=== PATIENT | female | born 2000 | race Caucasian/White ===

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

== ENCOUNTER 2021-11-01 13:05 | Emergency (ER) | payer OTHER, SELFPAY ==
[2021-11-01 13:06] VITALS: BP 133/92; PULSE 110; RESP 16; TEMP 35.4; O2SAT 97; BMI 23.8
[2021-11-01 13:24] VITALS: O2SAT 97
[2021-11-01 13:46] VITALS: PULSE 112; RESP 19
[2021-11-01] MEDS: Ipratropium/Albuterol Sulfate 3 ML AMPUL.NEB INHALATION (13:46)
--- NOTE | 2021-11-01 14:00 | RAD_ITS ---
STUDY: X-RAY CHEST REASON FOR EXAM: Female, 21 years old. Cough. TECHNIQUE: Single AP portable view of the chest. COMPARISON: None. FINDINGS: The lungs are clear and expanded. There is no demonstrated pleural abnormality. Normal size heart. Normal mediastinum and gudelia. Normal visualized pulmonary arteries. Normal visualized aortic arch and descending thoracic aorta. Normal visualized thoracic spine. Normal visualized ribs, clavicles, and shoulders. There is no demonstrated abnormality of the visualized soft tissue structures of the upper abdomen. RAD/Chest 1 View (Portable) IMPRESSION: Normal x-ray examination of the chest. Electronically Signed: Tunde Chan MD at 14:33 EDT ,
--- NOTE | 2021-11-01 14:43 | EDS_ITS ---
HPI History of Present Illness Chief Complaint: Cough Informant: patient Narrative Narrative: 21-year-old female arriving to the emergency room with cough and shortness of breath. She states that she has had a history of asthma and her inhaler is . She was recently seen by but she is no longer urgent care and was prescribed azithromycin and prednisone. She states that the prednisone seems to be a bit lower dosing than what she is used to. She notes no fevers. She notes continued symptoms despite the treatment above. PFSH PFS Medical History Anxiety Asthma Depression Home Medications albuterol sulfate 90 mcg/actuation aerosol inhaler 2 puff inhalation Q6H PRN Shortness Of Breath 11/01/21 [History Last Taken Unknown] albuterol sulfate 90 mcg/actuation aerosol inhaler (Ventolin HFA) 3 puff inhalation Q4H PRN PRN Wheezing ##1 11/01/21 [Rx Last Taken Unknown] prednisone 20 mg tablet 60 mg PO DAILY #15 TABLETS 11/01/21 [Rx Last Taken Unknown] Allergy/AdvReac Type Severity Reaction Status Date / Time No Known Allergies Allergy Verified 11/01/21 13:05 Social History (Updated 11/01/21 @ 15:[address] Baldo Grimes DO) Smoking Status: Never smoker substance use type: does not use ROS ROS ED Constitutional Constitutional ED: Denies chills, fever(s) or weight loss Eyes Eyes: Denies change in vision or diplopia ENT ENT ED: Denies ear pain, rhinorrhea or sore throat Cardiovascular Cardiovascular: Denies chest pain, orthopnea, palpitations or racing heartbeat Respiratory/Chest Respiratory/Chest: Reports cough and dyspnea; Denies orthopnea Gastrointestinal Gastrointestinal: Denies abdominal pain, diarrhea, nausea or vomiting Genitourinary Genitourinary ED: Denies dysuria, hematuria or urinary frequency Musculoskeletal Musculoskeletal: Denies arthralgias or myalgias Integumentary Denies abscess or rash Neurologic Neurologic: Denies headache(s) or weakness Psychiatric Psychiatric: Denies anxiety, depression, suicidal ideation or suicidal thoughts Endocrine Endocrinology: Denies polydipsia, polyphagia or polyuria Allergic/Immunologic Allergic/Immunologic ED: Denies mouth swelling, tongue swelling or urticaria EXAM Physical Exam Const Vital Signs: 11/01/21 13:06 11/01/21 13:24 11/01/21 13:46 Temperature 95.8 F L Temperature Source Temporal Pulse Rate 110 H 112 H Respiratory Rate 16 19 H Respiratory Effort Normal Non-Labored Respiratory Depth Normal Respiratory Pattern Normal Tachypnea Blood Pressure 133/92 H Blood Pressure Mean 105 Pulse Ox 97 Oxygen Delivery Method Room Air Room Air 11/01/21 14:48 Temperature Temperature Source Pulse Rate 72 Respiratory Rate 15 Respiratory Effort Respiratory Depth Respiratory Pattern Blood Pressure 113/69 Blood Pressure Mean Pulse Ox 99 Oxygen Delivery Method Positive well nourished and well developed General Appearance ED: well developed HEENT Reports normocephalic, head/scalp atraumatic and moist mucous membranes Eyes PERRL and EOMs intact bilaterally Neck no lymphadenopathy, supple and no JVD Resp normal respiratory effort Auscultation: wheezes expiratory wheezes Cardio regular rate, regular rhythm and no murmurs GI normal to inspection, nondistended, normoactive bowel sounds and non-tender Palpation: soft Back/Spine no CVA tenderness and normal ROM Extremity normal to inspection General Extremety ED: Negative for edema General Extremity: Negative for edema Neuro oriented x3 and CN's II-XII intact bilaterally Sensorium / Orientation: alert Motor Exam: strength 5/5 throughout Psych mental status grossly normal Mood & Affect: Negative for depressed or tearful Skin no rashes or lesions noted and no wounds MDM MDM MDM Narrative Medical decision making narrative: My interpretation of the chest x-ray is no acute process. COVID test is negative. At this point I believe this to be a viral illness. I am not cannot have her stop her antibiotic and she only has a couple days left should go ahead and finish that. I am going to write her a new inhaler as the previous one is and we will make sure that she has a spacer. Also going to have her increase the prednisone to 60 mg once a day. Patient to return if worsening or any concerns. Radiography Diagnostic Testing: Clinical Impression(s) from Imaging Studies Chest X-Ray 11/01/21 14:00 IMPRESSION: Normal x-ray examination of the chest. Electronically Signed: Tunde Chan MD at 14:33 EDT , Discharge Plan Triage Chief Complaint: Cough ED Provider: Baldo Grimes Dx/Rx/DC Orders Clinical Impression: Acute bronchitis with bronchospasm Instructions: ED Bronchitis with Wheezing (Adult) Prescriptions: New prednisone 20 mg tablet 60 mg PO DAILY Qty: 15 0RF albuterol sulfate [Ventolin HFA] 90 mcg/actuation HFA aerosol inhaler 3 puff inhalation Q4H PRN PRN (Reason: Wheezing) Qty: 1 0RF Rx Instructions: with spacer No Action albuterol sulfate 90 mcg/actuation HFA aerosol inhaler 2 puff INHALATION Q6H PRN (Reason: Shortness Of Breath) Label Comments: INHALE 1-2 PUFFS EVERY 6 (SIX) HOURS IF NEEDED FOR WHEEZING OR SHORTNESS OF BREATH. Primary Care Provider: Care Physician,No Primary Referrals: [facility] [Group of Physicians] - As Needed Care Physician,No Primary [Primary Care Provider] - Disposition Disposition: Home, Self Care Discharge Date/Time: 11/01/21 14:48
[2021-11-01 14:48] VITALS: BP 113/69; PULSE 72; RESP 15; O2SAT 99
== END 2021-11-01 14:48 | disposition home or self-care (01) ==
PROVIDERS: Emergency Provider Emergency Medicine; Visit Provider Emergency Medicine
DX: J20.9 Acute bronchitis, unspecified (principal); J45.909 Unspecified asthma, uncomplicated
CPT/HCPCS: 71045; 87811; 94640; 99282

== ENCOUNTER 2022-12-19 08:21 | Emergency (ER) | payer OTHER, SELFPAY ==
[2022-12-19 08:23] VITALS: BP 119/79; PULSE 100; RESP 14; TEMP 37.2; O2SAT 96; BMI 26.2
[2022-12-19 08:30] VITALS: O2SAT 99
--- NOTE | 2022-12-19 08:39 | EX.ED.DYSGE1 ---
HPI History of Present Illness Chief Complaint: Shortness of Breath Informant: patient Narrative Narrative: 22-year-old female presenting to the emergency room on day 6 of feeling ill. Patient notes a cough with some chest tightness. She notes she is an asthmatic. Current asthma therapy is as needed albuterol MDI with spacer. Unfortunately she could not find her inhaler. She notes some associated sore throat. Occasional sputum production. No fever or rashes. She denies neck pain vomiting or diarrhea. PFSH PFS Medical History Anxiety Asthma Depression Home Medications albuterol sulfate 90 mcg/actuation aerosol inhaler 2 puff inhalation Q6H PRN Shortness Of Breath 11/01/21 [History Last Taken Unknown] albuterol sulfate 90 mcg/actuation aerosol inhaler (Ventolin HFA) 3 puff inhalation Q4H PRN PRN Wheezing ##1 11/01/21 [Rx Last Taken Unknown] prednisone 20 mg tablet 60 mg (3 x 20 mg) PO DAILY #15 TABLETS 11/01/21 [Rx Last Taken Unknown] Allergy/AdvReac Type Severity Reaction Status Date / Time Iodinated Contrast Media Allergy Itching Verified 12/19/22 08:23 Social History Smoking Status: Never smoker substance use type: does not use ROS ROS ED Constitutional Constitutional ED: Denies chills, fever(s) or weight loss Eyes Eyes: Denies change in vision or diplopia ENT ENT ED: Reports sore throat; Denies ear pain or rhinorrhea Cardiovascular Cardiovascular: Denies chest pain, orthopnea, palpitations or racing heartbeat Respiratory/Chest Respiratory/Chest: Reports cough and other Details: Chest tightness worse with walking ; Denies orthopnea Gastrointestinal Gastrointestinal: Denies abdominal pain, diarrhea, nausea or vomiting Genitourinary Genitourinary ED: Denies dysuria, hematuria or urinary frequency Musculoskeletal Musculoskeletal: Denies arthralgias or myalgias Integumentary Denies abscess or rash Neurologic Neurologic: Denies headache(s) or weakness Psychiatric Psychiatric: Denies anxiety, depression, suicidal ideation or suicidal thoughts Endocrine Endocrinology: Denies polydipsia, polyphagia or polyuria Allergic/Immunologic Allergic/Immunologic ED: Denies mouth swelling, tongue swelling or urticaria EXAM Physical Exam Const Vital Signs: 12/19/22 08:23 12/19/22 08:30 Temperature 99 F Temperature Source Temporal Pulse Rate 100 Respiratory Rate 14 Respiratory Effort Normal Non-Labored Respiratory Depth Normal Respiratory Pattern Normal Blood Pressure 119/79 Blood Pressure Mean 92 Pulse Ox 96 Oxygen Delivery Method Room Air Room Air Positive well nourished and well developed General Appearance ED: well developed HEENT Reports normocephalic, head/scalp atraumatic and moist mucous membranes HEENT Narrative: No oral pharyngeal erythema. No exudates or palatal petechiae noted. I do not appreciate any retropharyngeal or peritonsillar abscess Eyes PERRL and EOMs intact bilaterally Neck no lymphadenopathy, supple and no JVD Resp normal respiratory effort and clear to auscultation bilaterally Cardio regular rate, regular rhythm and no murmurs GI normal to inspection, nondistended, normoactive bowel sounds and non-tender Palpation: soft Back/Spine no CVA tenderness and normal ROM Extremity normal to inspection General Extremety ED: Negative for edema General Extremity: Negative for edema Neuro oriented x3 and CN's II-XII intact bilaterally Sensorium / Orientation: alert Motor Exam: strength 5/5 throughout Psych mental status grossly normal Mood & Affect: Negative for depressed or tearful Skin no rashes or lesions noted and no wounds MDM MDM MDM Narrative Medical decision making narrative: Rapid strep was negative. This will be sent for culture. She is not wheezing does not appear dyspneic. I do not think steroids at this point are necessarily indicated. I can write for her to have her albuterol MDI on hand with a spacer. Patient to return if worsening or concerns Discharge Plan Triage Chief Complaint: Shortness of Breath ED Provider: Baldo Grimes Dx/Rx/DC Orders Prescriptions: No Action albuterol sulfate 90 mcg/actuation HFA aerosol inhaler 2 puff INHALATION Q6H PRN (Reason: Shortness Of Breath) Patient Comments: INHALE 1-2 PUFFS EVERY 6 (SIX) HOURS IF NEEDED FOR WHEEZING OR SHORTNESS OF BREATH. prednisone 20 mg tablet 60 mg PO DAILY Qty: 15 0RF albuterol sulfate [Ventolin HFA] 90 mcg/actuation HFA aerosol inhaler 3 puff inhalation Q4H PRN PRN (Reason: Wheezing) Qty: 1 0RF Rx Instructions: with spacer Primary Care Provider: Care Physician,No Primary Referrals: Care Physician,No Primary [Primary Care Provider] -
[2022-12-19 09:34] VITALS: BP 126/57; PULSE 62; RESP 15; O2SAT 99
== END 2022-12-19 09:35 | disposition home or self-care (01) ==
PROVIDERS: Emergency Provider Emergency Medicine; Visit Provider Emergency Medicine
DX: R06.02 Shortness of breath (principal)
CPT/HCPCS: 87880; 99282

== ENCOUNTER 2023-02-23 17:57 | Emergency (ER) | payer OTHER, SELFPAY ==
[2023-02-23 17:58] VITALS: BP 126/78; PULSE 86; RESP 18; TEMP 35.9; O2SAT 100; BMI 28.2
--- NOTE | 2023-02-23 18:10 | EDS_ITS ---
HPI HPI - Female History of Present Illness Chief Complaint: Complaint Informant: patient Narrative Narrative: Patient complains of UTI symptoms. She stated her symptoms started yesterday with frequency and dysuria. She had a UTI back on January 29 and was treated in [place]. She was on cefdinir for what sounds like about a week. Her symptoms totally resolved. She had the same symptoms then that they were much worse. She has been off antibiotics for about 3 weeks. She states the symptoms are now starting to come back but they are not as bad. She has no nausea vomiting fevers chills or flank pain. No vaginal discharge or bleeding. Last menstrual cycle was probably back in the summer when she got her recent Nexplanon. She [facility] the [facility]. They evidently checked the urine it was positive for UTI. They had her do then a virtual physician visit. They then referred her here because they did not want to treat her because she had already been treated within the last month. [facility] Medical History Anxiety Asthma Depression Home Medications albuterol sulfate 90 mcg/actuation aerosol inhaler 2 puff inhalation Q6H PRN Shortness Of Breath 11/01/21 [History Last Taken Unknown] albuterol sulfate 90 mcg/actuation aerosol inhaler (Ventolin HFA) 3 puff inhalation Q4H PRN PRN Wheezing ##1 11/01/21 [Rx Last Taken Unknown] albuterol sulfate 90 mcg/actuation aerosol inhaler (Ventolin HFA) 2 puff inhalation Q4H PRN PRN Wheezing ##1 12/19/22 [Rx Last Taken Unknown] aripiprazole 10 mg tablet (Abilify) 10 mg PO QHS 02/23/23 [History Last Taken Unknown] buspirone 30 mg tablet 30 mg PO BID 02/23/23 [History Last Taken Unknown] lorazepam 1 mg tablet 0.5 mg PO PRN 02/23/23 [History Last Taken Unknown] nitrofurantoin monohydrate/macrocrystals 100 mg capsule (Macrobid) 100 mg PO BID #14 caps 02/23/23 [Rx Last Taken Unknown] sertraline 100 mg tablet (Zoloft) 200 mg PO DAILY 02/23/23 [History Last Taken Unknown] Allergy/AdvReac Type Severity Reaction Status Date / Time Iodinated Contrast Media Allergy Itching Verified 02/23/23 18:18 Social History Smoking Status: Never smoker substance use type: does not use ROS ROS ED Constitutional Constitutional ED: Denies chills or fever(s) Cardiovascular Cardiovascular: Denies chest pain or palpitations Respiratory/Chest Respiratory/Chest: Denies cough or dyspnea Gastrointestinal Gastrointestinal: Denies abdominal pain, constipation, diarrhea, melena, nausea or vomiting Genitourinary Genitourinary ED: Reports dysuria and urinary frequency; Denies hematuria Musculoskeletal Musculoskeletal: Reports other Details: No back or flank pain ; Denies myalgias or neck pain Neurologic Neurologic: Denies weakness Endocrine Endocrinology: Denies polydipsia or polyuria Hematologic/Lymphatic Hematologic/Lymphatic: Denies lymphadenopathy Allergic/Immunologic Allergic/Immunologic ED: Denies urticaria EXAM Physical Exam Narrative Exam Narrative: CONSTITUTIONAL: Patient is nontoxic in appearance. The patient looks comfortable. HEENT: No notable trauma. Mucous membranes moist. EYES: No conjunctival injection. CARDIOVASCULAR: Regular rate. Regular rhythm. No notable murmur. RESPIRATORY: No respiratory distress. Breathing is unlabored. No wheezes. GASTROINTESTINAL: Not distended. Bowel sounds are normal. No tenderness. No guarding. No rebound. No palpable mass. No bruit. Overall very benign abdomen. GENITOURINARY: No tenderness over the bladder. No CVA tenderness on either side and she denies pain there. MUSCULOSKELETAL: Atraumatic. No peripheral edema. NEUROLOGICAL: Patient is alert and appropriate. No focal deficit noted. SKIN: No noted rashes. No diaphoresis. No pallor PSYCHIATRIC: Patient is calm. Mood is appropriate. Const Vital Signs: 02/23/23 17:58 Temperature 96.6 F L Temperature Source Temporal Pulse Rate 86 Respiratory Rate 18 Blood Pressure 126/78 H Blood Pressure Mean 94 Pulse Ox 100 Oxygen Delivery Method Room Air MDM MDM MDM Narrative Medical decision making narrative: Urine is negative Urinalysis shows no real sign of UTI. However, it is also very dilute. She has been drinking a large amount of water since it was checked earlier. She has urinalysis earlier today that was evidently positive. She has symptoms of UTI. We discussed risks and benefits of treating. We mutually agreed that we will treat with antibiotics pending results of her culture. She was on cefdinir before. She has no allergies. We will treat with Macrobid. If the cultures show poor susceptibility it can be changed. If it shows negative infection it can be stopped at that point. Lab Data Attestation: I reviewed the patient's lab results. Labs: Laboratory Results - last 24 hr 02/23/23 18:10 Urine Color Straw Urine Clarity Clear Urine pH 6.5 Ur Specific [place] 1.005 Urine Protein Negative Urine Glucose (UA) Normal Urine Ketones Negative Urine Occult Blood Negative Urine Nitrite Negative Urine Bilirubin Negative Urine Urobilinogen Normal Ur Leukocyte Esterase 25 H Urine RBC 0 SEEN Urine WBC 0-5 SEEN Ur Squamous Epith Cells 0-5 SEEN Urine Bacteria 0 SEEN Urine Mucus 0 SEEN Urine Test Negative Discharge Plan Triage Chief Complaint: Complaint ED Provider: Rogerio Irene Dx/Rx/DC Orders Clinical Impression: UTI (urinary tract infection) Instructions: Urinary Tract Infections in Women Prescriptions: New nitrofurantoin monohyd/m-cryst [Macrobid] 100 mg capsule 100 mg PO BID Qty: 14 0RF Rx Instructions: must administer with a meal/food No Action albuterol sulfate 90 mcg/actuation HFA aerosol inhaler 2 puff INHALATION Q6H PRN (Reason: Shortness Of Breath) Patient Comments: INHALE 1-2 PUFFS EVERY 6 (SIX) HOURS IF NEEDED FOR WHEEZING OR SHORTNESS OF BREATH. albuterol sulfate [Ventolin HFA] 90 mcg/actuation HFA aerosol inhaler 3 puff inhalation Q4H PRN PRN (Reason: Wheezing) Qty: 1 0RF Rx Instructions: with spacer sertraline [Zoloft] 100 mg tablet 200 mg PO DAILY aripiprazole [Abilify] 10 mg tablet 10 mg PO QHS buspirone 30 mg tablet 30 mg PO BID Patient Comments: TAKE 1 TABLET BY MOUTH TWICE A DAY lorazepam 1 mg tablet 0.5 mg PO PRN Patient Comments: TAKE HALF OF A TABLET BY MOUTH THREE TIMES DAILY NEEDED FOR SEVERE ANXIETY albuterol sulfate [Ventolin HFA] 90 mcg/actuation HFA aerosol inhaler 2 puff inhalation Q4H PRN PRN (Reason: Wheezing) Qty: 1 0RF Rx Instructions: dispense with spacer Primary Care Provider: Care Physician,No Primary Referrals: Kary Torres MD [Med Staff - Active Staff] - 3-5 Days Care Physician,No Primary [Primary Care Provider] - Activity Restrictions/Additional Instructions: Follow-up as above or with your physician back home. Disposition Disposition: Home, Self Care Capacity Legal Pivot End Polisher Reflex Medical hold order details:: IF a medical hold is selected below, a suggested order for a MEDICAL HOLD will reflex upon signing the document. Next of kin: [place] law dictates a PRIORITY LIST for identifying legal decision-maker/legal next of kin in the following order (LNOK): 1st: The patient?s legal guardian, if any 2nd: The patient's spouse (if status is questionable, consult Risk Management) 3rd: The patient?s adult child(robert) (majority, if multiple children) 4th: The patient?s parents 5th: The patient?s adult siblings (majority, if multiple children siblings)
[2023-02-23 18:17] LABS: Bacteria 0 SEEN /hpf (None Seen); Mucous, Urine 0 SEEN /hpf (<or=2+); Red Blood Cells-Urine 0 SEEN /hpf (0-5)
[2023-02-23 18:30] LABS: Color, Urine Straw (Yellow); Glucose, Dipstick Normal (Normal); Ketone-Dipstick Negative (Negative); Leukocyte Esterase-Dipstick 25 /ul (Negative); Nitrite-Dipstick Negative (Negative); Occult Blood-Urine Negative /ul (Negative); Protein-Dipstick Negative (Negative); Specific Gravity, Urine 1.005 (1.002-1.030); Urine Bilirubin Dipstick Negative (Negative); Urine Clarity Clear (Clear); Urine Urobilinogen Normal (Normal); Urine pH 6.5 (5.0 - 8.0)
--- OUTSIDE RECORDS SUMMARY | 2023-02-23 18:40 | XMS RPT_ITS | CCD ---
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 trouble swallowing; or severe nervous system reaction--very stiff (rigid) muscles, high fever, sweating, confusion, fast or uneven heartbeats, tremors, feeling like you might pass out. Common side effects may include: drowsiness, dizziness; ringing in your ears; double vision; feeling nervous; dry mouth; or tiredness, sleep problems (insomnia). This is not a complete list of side effects and others may occur. Call your doctor for medical advice about side effects. You may report side effects to FDA at 8-718-IPJ-2779. What other drugs will affect promethazine? Using promethazine with other drugs that make you drowsy can worsen this effect. Ask your doctor before using opioid medication, a sleeping pill, a muscle relaxer, or medicine for anxiety or seizures. Other drugs may affect promethazine, including prescription and ppdb-wkt-dxbjiqv medicines, vitamins, and herbal products. Tell your doctor about all other medicines you use. Where can I get more information? Your doctor or pharmacist can provide more information about promethazine. Remember, keep this and all other medicines out of the reach of children, never share your medicines with others, and use this medication only for the indication prescribed. Every effort has been made to ensure that the information provided by [employer] ('[employer]') is accurate, up-to-date, and complete, but no guarantee is made to that effect. Drug information contained herein may be time sensitive. [employer] information has been compiled for use by healthcare practitioners and consumers in the [place] and therefore [employer] does not warrant that uses outside of the [place] are appropriate, unless specifically indicated otherwise. [employer] drug information does not endorse drugs, diagnose patients or recommend therapy. [employer] drug information is an informational resource designed to assist licensed healthcare practitioners in caring for their patients and/or to serve consumers viewing this service as a supplement to, and not a substitute for, the expertise, skill, knowledge and judgment of healthcare practitioners. The absence of a warning for a given drug or drug combination in no way should be construed to indicate that the drug or drug combination is safe, effective or appropriate for any given patient. [employer] does not assume any responsibility for any aspect of healthcare administered with the aid of information [employer] provides. The information contained herein is not intended to cover all possible uses, directions, precautions, warnings, drug interactions, allergic reactions, or adverse effects. If you have questions about the drugs you are taking, check with your doctor, nurse or pharmacist. Copyright 4616-3150 [employer] ([employer]). Version: 8.01. Revision Date: 03/05/2021. dolutegravir (BLUNT loo TEG ra vir) Livan Licona What is the most important information I should know about dolutegravir? You should not use dolutegravir if you are also taking dofetilide (Tikosyn). Taking dolutegravir during the first trimester of may cause defects. Use effective control to prevent while you are using dolutegravir. What is dolutegravir? Dolutegravir is an antiviral medicine that is used with other medications to treat HIV, the virus that can cause the acquired immunodeficiency syndrome (AIDS). Dolutegravir is not a cure for HIV or AIDS. Dolutegravir is for use in adults and children as young as 4 weeks old and weighing at least 6 pounds (3 kilograms). Dolutegravir may also be used for purposes not listed in this medication guide. What should I discuss with my healthcare provider before taking dolutegravir? You should not use dolutegravir if you are allergic to it, or if you are also taking dofetilide (Tikosyn). Tell your doctor if you have ever had: liver disease, especially hepatitis B or C. You may need to have a negative test before starting this treatment. Dolutegravir may harm an unborn baby if you take the medicine at the time of conception or during the first 12 weeks of . Use effective control to prevent , and tell your doctor if you become . HIV can be passed to your baby if the virus is not controlled during . If you are , your name may be listed on a registry to track any effects of antiviral medicine on the baby. Use your medications properly to control HIV. Women with HIV or AIDS should not breastfeed. Even if your baby is born without HIV, the virus may be passed to the baby in your breast milk. How should I take dolutegravir? Follow all directions on your prescription label and read all medication guides or instruction sheets. Use the medicine exactly as directed. You may take dolutegravir with or without food. Do not crush or chew a dispersible tablet whole. Swallow the tablet whole, or place it in a small amount of water. Allow the tablet to disperse (it will not dissolve completely). Stir and give the mixture to the child right away. The amount of water needed will depend on the number of tablets needed for your child's dose. Follow the instructions provided with your medicine. The dolutegravir regular tablet and dispersible tablet cannot be used in the same dosages. Take only the pill form your doctor has prescribed. Avoid medication errors by always checking the medicine you receive at the pharmacy. Dolutegravir doses are based on weight in children. Your child's dose needs may change if the child gains or loses weight. While using dolutegravir, you may need frequent blood tests. If you've ever had hepatitis B, using dolutegravir can cause this virus to become active or get worse. You may need frequent liver function tests while using this medicine and for several months after you stop. Use all HIV medications as directed and read all medication guides you receive. Do not change your dose or dosing schedule without your doctor's advice. Every person with HIV should remain under the care of a doctor. Store at room temperature away from moisture and heat. Keep the tablets in their original container, along with any packet or canister of moisture-absorbing preservative. What happens if I miss a dose? Take the medicine as soon as you can, but skip the missed dose if it is almost time for your next dose. Do not take two doses at one time. Get your prescription refilled before you run out of medicine completely. What happens if I overdose? Seek emergency medical attention or call the Poison Help line at . What should I avoid while taking dolutegravir? Using this medicine will not prevent your disease from spreading. Do not have unprotected sex or share razors or toothbrushes. Talk with your doctor about safe ways to prevent HIV transmission during sex. Sharing drug or medicine needles is never safe, even for a healthy person. What are the possible side effects of dolutegravir? Stop taking this medicine and get emergency medical help if you have signs of an allergic reaction: fever, general ill feeling, trouble breathing, tiredness; joint or muscle pain, blisters or mouth sores, redness or swelling in your eyes; blistering or peeling skin; swelling of your face, lips, tongue, or throat. Call your doctor at once if you have: the first sign of any skin rash, no matter how mild; or liver problems--nausea, vomiting, loss of appetite, upper stomach pain, dark urine, godwin-colored stools, jaundice (yellowing of the skin or eyes). Dolutegravir affects your immune system, which may cause certain side effects (even weeks or months after you've taken this medicine). Tell your doctor if you have: signs of a new infection--fever, night sweats, swollen glands, cold sores, cough, wheezing, diarrhea, weight loss; trouble speaking or swallowing, problems with balance or eye movement, weakness or prickly feeling; or swelling in your neck or throat (enlarged thyroid), menstrual changes, impotence. Common side effects may include: headache; tiredness; or sleep problems (insomnia). This is not a complete list of side effects and others may occur. Call your doctor for medical advice about side effects. You may report side effects to FDA at 9-213-WRU-5070. What other drugs will affect dolutegravir? Some medicines can make dolutegravir much less effective when taken at the same time. If you take any of the following medicines, take your dolutegravir dose 2 hours before or 6 hours after you take the other medicine. antacids or laxatives that contain calcium, magnesium, or aluminum (such as Amphojel, Di-Gel Maalox, Milk of Magnesia, Mylanta, Pepcid Complete, Rolaids, Rulox, Tums, and others), or the ulcer medicine sucralfate (Carafate); buffered medicine; or vitamin or mineral supplements that contain calcium or iron (but if you take dolutegravir with food, you can take these supplements at the same time). Many drugs can affect dolutegravir. This includes prescription and mvbi-zui-mxhndta medicines, vitamins, and herbal products. Not all possible interactions are listed here. Tell your doctor about all your current medicines and any medicine you start or stop using. Where can I get more information? Your pharmacist can provide more information about dolutegravir. Remember, keep this and all other medicines out of the reach of children, never share your medicines with others, and use this medication only for the indication prescribed. Every effort has been made to ensure that the information provided by [employer]. ('[employer]') is accurate, up-to-date, and complete, but no guarantee is made to that effect. Drug information contained herein may be time sensitive. [employer] information has been compiled for use by healthcare practitioners and consumers in the [place] and therefore [employer] does not warrant that uses outside of the [place] are appropriate, unless specifically indicated otherwise. [email or web address]'s drug information does not endorse drugs, diagnose patients or recommend therapy. [employer] drug information is an informational resource designed to assist licensed healthcare practitioners in caring for their patients and/or to serve consumers viewing this service as a supplement to, and not a substitute for, the expertise, skill, knowledge and judgment of healthcare practitioners. The absence of a warning for a given drug or drug combination in no way should be construed to indicate that the drug or drug combination is safe, effective or appropriate for any given patient. [facility] does not assume any responsibility for any aspect of healthcare administered with the aid of information [employer] provides. The information contained herein is not intended to cover all possible uses, directions, precautions, warnings, drug interactions, allergic reactions, or adverse effects. If you have questions about the drugs you are taking, check with your doctor, nurse or pharmacist. Copyright [id number] [employer] ([employer]). Version: 6.01. Revision Date: 09/06/2019. doxycycline (oral/injection) (DOX sarina regalado) Acticlate, Adoxa, Alodox, Avidoxy, Doryx, Doryx MPC, Lymepak, Mondoxyne NL, Monodox, Morgidox, Morgidox 1t021ad, Morgidox 1v142du, O[place]bo, Oracea, Targadox, Vibramycin, Vibramycin Monohydrate What is the most important information I should know about doxycycline? You should not take this medicine if you are allergic to any tetracycline antibiotic. Children younger than 8 years old should use doxycycline only in cases of severe or life-threatening conditions. This medicine can cause permanent yellowing or graying of the teeth in children Using doxycycline during could harm the unborn baby or cause permanent tooth discoloration later in the baby's life. What is doxycycline? Doxycycline is a tetracycline antibiotic that Doxycycline is used to treat many different bacterial infections, such as acne, urinary tract infections, intestinal infections, eye infections, gonorrhea, chlamydia, periodontitis (gum disease), and others. Doxycycline is also used to treat blemishes, bumps, and acne-like lesions caused by rosacea. Doxycycline will not treat facial redness caused by rosacea. Some forms of doxycycline are used to prevent malaria, to treat anthrax, or to treat infections caused by mites, ticks, or lice. Doxycycline may also be used for purposes not listed in this medication guide. What should I discuss with my healthcare provider before taking doxycycline? You should not take this medicine if you are allergic to doxycycline or other tetracycline antibiotics such as demeclocycline, minocycline, tetracycline, or tigecycline. Tell your doctor if you have ever had: liver disease; kidney disease; asthma or sulfite allergy; increased pressure inside your skull; or if you also take isotretinoin, seizure medicine, or a blood thinner such as warfarin (Coumadin). If you are using doxycycline to treat gonorrhea, your doctor may test you to make sure you do not also have syphilis, another sexually transmitted disease. Taking this medicine during may affect tooth and bone development in the unborn baby. Taking doxycycline during the last half of can cause permanent tooth discoloration later in the baby's life. Tell your doctor if you are or if you become . Doxycycline can make control pills less effective. Ask your doctor about using a non-hormonal control (condom, diaphragm with spermicide) to prevent . Doxycycline can pass into breast milk and may affect bone and tooth development in a nursing . Do not breastfeed while you are taking doxycycline. Doxycycline can cause permanent yellowing or graying of the teeth in children younger than 8 years old. Children should use doxycycline only in cases of severe or life-threatening conditions such as anthrax or [place] spotted fever. The benefit of treating a serious condition may outweigh any risks to the child's tooth development. How should I take doxycycline? Follow all directions on your prescription label and read all medication guides or instruction sheets. Use the medicine exactly as directed. Take doxycycline with a full glass of water. Drink plenty of liquids while you are taking doxycycline. Read and carefully follow any Instructions for Use provided with your medicine. Ask your doctor or pharmacist if you do not understand these instructions. Most brands of doxycyline may be taken with food or milk if the medicine upsets your stomach. Different brands of doxycycline may have different instructions about taking them with or without food. Take Oracea on an empty stomach, at least 1 hour before or 2 hours after a meal. You may need to split a doxycycline tablet to get the correct dose. Follow your doctor's instructions. Swallow a delayed-release capsule or tablet whole. Do not crush, chew, break, or open it. Measure liquid medicine with the dosing syringe provided, or with a special dose-measuring spoon or medicine cup. If you do not have a dose-measuring device, ask your pharmacist for one. If you take doxycycline to prevent malaria: Start taking the medicine 1 or 2 days before entering an area where malaria is common. Continue taking the medicine every day during your stay and for at least 4 weeks after you leave the area. Doxycycline is usually given by injection only if you are unable to take the medicine by mouth. A healthcare provider will give you this injection as an infusion into a vein. Use this medicine for the full prescribed length of time, even if your symptoms quickly improve. Skipping doses can increase your risk of infection that is resistant to medication. Doxycycline will not treat a viral infection such as the flu or a common cold. Store at room temperature away from moisture, heat, and light. Throw away any unused medicine after the expiration date on the label has passed. Using doxycycline can cause damage to your kidneys. What happens if I miss a dose? Take the medicine as soon as you can, but skip the missed dose if it is almost time for your next dose. Do not take two doses at one time. What happens if I overdose? Seek emergency medical attention or call the Poison Help line at . What should I avoid while taking doxycycline? Do not take iron supplements, multivitamins, calcium supplements, antacids, or laxatives within 2 hours before or after taking doxycycline. Avoid taking any other antibiotics with doxycycline unless your doctor has told you to. Doxycycline could make you sunburn more easily. Avoid sunlight or tanning beds. Wear protective clothing and use sunscreen (SPF 30 or higher) when you are outdoors. Antibiotic medicines can cause diarrhea, which may be a sign of a new infection. If you have diarrhea that is watery or bloody, call your doctor. Do not use anti-diarrhea medicine unless your doctor tells you to. What are the possible side effects of doxycycline? Get emergency medical help if you have signs of an allergic reaction (hives, difficult breathing, swelling in your face or throat) or a severe skin reaction (fever, sore throat, burning in your eyes, skin pain, red or purple skin rash that spreads and causes blistering and peeling). Seek medical treatment if you have a serious drug reaction that can affect many parts of your body. Symptoms may include: skin rash, fever, swollen glands, flu-like symptoms, muscle aches, severe weakness, unusual bruising, or yellowing of your skin or eyes. This reaction may occur several weeks after you began using doxycycline. Call your doctor at once if you have: severe stomach pain, diarrhea that is watery or bloody; throat irritation, trouble swallowing; chest pain, irregular heart rhythm, feeling short of breath; little or no urination; low white blood cell counts--fever, chills, swollen glands, body aches, weakness, pale skin, easy bruising or bleeding; increased pressure inside the skull--severe headaches, ringing in your ears, dizziness, nausea, vision problems, pain behind your eyes; or signs of liver or pancreas problems--loss of appetite, upper stomach pain (that may spread to your back), tiredness, nausea or vomiting, fast heart rate, dark urine, jaundice (yellowing of the skin or eyes). Common side effects may include: nausea, vomiting, upset stomach, loss of appetite; mild diarrhea; skin rash or itching; darkened skin color; or vaginal itching or discharge. This is not a complete list of side effects and others may occur. Call your doctor for medical advice about side effects. You may report side effects to FDA at 5-465-KHQ-3168. What other drugs will affect doxycycline? Sometimes it is not safe to use certain medications at the same time. Some drugs can affect your blood levels of other drugs you take, which may increase side effects or make the medications less effective. Other drugs may affect doxycycline, including prescription and hdxt-aqw-bpilfnd medicines, vitamins, and herbal products. Tell your doctor about all your current medicines and any medicine you start or stop using. Where can I get more information? Your pharmacist can provide more information about doxycycline. Remember, keep this and all other medicines out of the reach of children, never share your medicines with others, and use this medication only for the indication prescribed. Every effort has been made to ensure that the information provided by [employer] ('[employer]') is accurate, up-to-date, and complete, but no guarantee is made to that effect. Drug information contained herein may be time sensitive. [employer] information has been compiled for use by healthcare practitioners and consumers in the [place] and therefore [employer] does not warrant that uses outside of the [place] are appropriate, unless specifically indicated otherwise. [employer] drug information does not endorse drugs, diagnose patients or recommend therapy. [employer] drug information is an informational resource designed to assist licensed healthcare practitioners in caring for their patients and/or to serve consumers viewing this service as a supplement to, and not a substitute for, the expertise, skill, knowledge and judgment of healthcare practitioners. The absence of a warning for a given drug or drug combination in no way should be construed to indicate that the drug or drug combination is safe, effective or appropriate for any given patient. [employer] does not assume any responsibility for any aspect of healthcare administered with the aid of information [employer] provides. The information contained herein is not intended to cover all possible uses, directions, precautions, warnings, drug interactions, allergic reactions, or adverse effects. If you have questions about the drugs you are taking, check with your doctor, nurse or pharmacist. Copyright [id number] [employer] ([employer]). Version: 25.. Revision Date: 10/14/2022. emtricitabine and tenofovir (ANDREW ramirez and ten OF dc vir ) Desckristiny, Descmeghan Blister Pack, Truvada What is the most important information I should know about emtricitabine and tenofovir? Do not take this combination medicine if you also take other medicines that contain emtricitabine, tenofovir, lamivudine, or adefovir. Truvada PrEP is used to reduce the risk of becoming infected with HIV in adults who are HIV-negative. This medicine alone will not protect you from infection with HIV. You must also use safer sex practices and get tested for HIV at least every 3 months. You may develop lactic acidosis, a dangerous build-up of lactic acid in your blood. Call your doctor or get emergency medical help if you have unusual muscle pain, trouble breathing, stomach pain, dizziness, feeling cold, or feeling very weak or tired. If you've ever had hepatitis B, it may become active or get worse after you stop using emtricitabine and tenofovir. You may need frequent liver function tests for several months. What is emtricitabine and tenofovir? Emtricitabine and tenofovir are antiviral medicines that prevent human immunodeficiency virus (HIV) from multiplying in your body. Emtricitabine and tenofovir is a combination medicine used to treat HIV, the virus that can cause acquired immunodeficiency syndrome (AIDS). This medicine is not a cure for HIV or AIDS, but it can be used to treat HIV in adults and children who are at least 12 years old and weigh at least 17 kilograms (37 pounds). Emtricitabine and tenofovir is also used in children who weigh between 55 and 77 pounds (25 to 35 kilograms) and who take certain other HIV medications. Truvada PrEP is used together with safer-sex practices to reduce the risk of becoming infected with HIV. You must be HIV-negative and an adult to use Truvada PrEP for this purpose. Emtricitabine and tenofovir may also be used for purposes not listed in this medication guide. What should I discuss with my healthcare provider before taking emtricitabine and tenofovir? You should not take this medicine if you are allergic to emtricitabine or tenofovir. Do not take if you also use other medicines that contain emtricitabine, tenofovir, lamivudine, or adefovir (such as Atripla, Combivir, Complera, Descovy, Dutrebis, Emtriva, Epivir, Epzicom, Genvoya, Hepsera, Odefsey, Stribild, Triumeq, Trizivir, or Viread). If you take Truvada PrEP to reduce your risk of HIV infection: You must have a negative HIV test immediately before you start taking the medicine. Do not take Truvada PrEP to reduce infection risk if you are HIV-positive, if have been exposed to HIV within the past month, or if you had any symptoms (such as fever, sore throat, night sweats, swollen glands, diarrhea, body aches). Tell your doctor if you have ever had: liver disease (you may be tested for hepatitis B before you can use this medicine); osteopenia (low bone mineral density); or kidney disease. You may develop lactic acidosis, a dangerous build-up of lactic acid in your blood. This may be more likely if you have other medical conditions, if you've taken HIV medication for a long time, or if you are a woman. Ask your doctor about your risk. Tell your doctor if you are , and use your medications properly to control your infection. HIV can be passed to your baby if the virus is not controlled during . Your name may be listed on a registry to track any effects of antiviral medicine on the baby. Women with HIV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
[2023-02-23 18:41] LABS: Internal QC Validated? YES +Cl - CLEAR BKGD; Pregnancy, Urine Negative Negative; Squamous Epithelial Cells - UA 0-5 SEEN /hpf (5-10); White Blood Cells 0-5 SEEN /hpf (0-5)
[2023-02-23] MEDS: Nitrofurantoin Macrocrystals 100 MG Capsule PO (19:13)
== END 2023-02-23 19:15 | disposition home or self-care (01) ==
LOC: ED 18:37
PROVIDERS: Emergency Provider Emergency Medicine; Visit Provider Emergency Medicine
DX: N39.0 Urinary tract infection, site not specified (principal); F32.A Depression, unspecified; F41.9 Anxiety disorder, unspecified; Z79.899 Other long term (current) drug therapy
CPT/HCPCS: 81001; 81025; 87086; 87088; 99282

== ENCOUNTER 2023-04-13 08:00 | Outpatient (RCR) | payer OTHER, SELFPAY ==
--- NOTE | 2023-04-13 09:05 | BH.SGPN.GN ---
Behaviors/Verbalizations/Mental Status: [] Eye contact is good. Motor activity is appropriate. Appearance is casual. Speech is Appropriate. Mood is depressed/anxious. Affect is congruent. Thoughts are linear and logical. No evidence of psychosis. Reviewed daily check in sheet and pt reports 4/5 for suicidal thoughts and 2/5 for intent. CSSRS was completed prior to group this AM. Client Response/Progress/Benefit: [] Pt participated when prompted. Attentive. Today was pt's first day in IOP. Symptom tracker notes 5/5 for depression, 4/5 for anxiety and irritability. She briefly introduced herself and stated that her goal for IOP is to feel better generally. Also reported that she wants to learn skills to better manage her mental health. She was brief and superficial as this was her first day in IOP. No progress noted. Group provided support, encouragement, and feedback/advice for her first day in IOP which was beneficial. Will continue in IOP to prevent decompensation, increase healthy coping, and improve functioning. Narrative Note: []
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
--- NOTE | 2023-04-13 11:15 | BH.SGPN.GN ---
Behaviors/Verbalizations/Mental Status: []Pt alert and oriented, casually dressed and groomed. Eye contact good. Motor activity appropriate. Speech within normal limits. Affect congruent, mood anxious and depressed. Thoughts linear, logical, no signs of hallucinations or delusions. Client Response/Progress/Benefit: [] Pt was an active participant in group discussions and experiential activity. Attentive during psychoeducation on the 4 A's (Avoid, adapt, alter, accept) of coping with stress. Was able to identify the connection between the experiential activity and utilization of stress management skills. Pt did not share what strategy she wanted to work on, but pt did well in the activity with using deep breathing and communicating. Benefited from increased awareness of stress management strategies. Pt?s first day of IOP tx and pt did well to engage in the group activity and discussion. Pt will continue IOP tx to prevent decompensation, improve daily functioning, and increase healthy coping skills. Narrative Note: []
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
[2023-04-14 10:17] VITALS: BP 118/78; PULSE 76
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
--- NOTE | 2023-04-14 12:32 | BH.DR.ITP ---
Initial Treatment Plan Patient Information Visit Information: ADMISSION DATE: EXPECTED LOS: 4-6 weeks Problems/Symptoms Problem #1:: Depression Symptom:: Sadness, hopelessness, worthlessness, low motivation, fatigue, decreased concentration, passive thoughts of , passive suicidal ideation, plan for suicide. Problem #2:: Anxiety Symptom:: Worry, rumination, avoidance, hypervigilance, flashbacks, nightmares, reexperiencing.
--- NOTE | 2023-04-15 09:00 | BH.SGPN.GN ---
Behaviors/Verbalizations/Mental Status: [] Eye contact is good. Motor activity is appropriate. Appearance is disheveled. Speech is Appropriate. Mood is depressed. Affect is flat. Thoughts are linear and logical. No evidence of psychosis. Reviewed daily check in sheet and pt reports 4/5 for suicidal thoughts and 2/5 for intent. This has been her baseline since entering IOP. Client Response/Progress/Benefit: [] Pt participated at times during the group discussion. Attentive. Emotion for today is exhausted. Shared that she spent time with her friends last evening stating its was fun. Attempting behavioral activation and opposite action to help with mood. She continues to report depression, hopelessness, low energy, and low motivation which is impacting her daily functioning and ADLs. Check in was brief. Limited progress noted. Beneifted from group support, encouragement, and feedback. Will continue in IOP to maintain safety, stabilize mood, increase healthy coping, and improve functioning. Narrative Note: []
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
== END 2023-04-23 11:56 ==
LOC: BHIOP 08:00
PROVIDERS: Visit Provider Psychiatry & Neurology Psychiatry
DX: F33.2 Major depressive disorder, recurrent severe without psychotic features (principal); F43.10 Post-traumatic stress disorder, unspecified; F41.1 Generalized anxiety disorder; Z79.899 Other long term (current) drug therapy
CPT/HCPCS: S9480; 90832; 90834; 90853

== ENCOUNTER 2023-04-16 12:25 | Emergency (ER) | payer OTHER, SELFPAY ==
[2023-04-16] VITALS (8 sets, daily range): BP systolic 121–139; BP diastolic 72–82; PULSE 88–97; RESP 16–18; TEMP 36.6–37.3; O2SAT 97–99; BMI 26.8
[2023-04-16 13:30] LABS: Amphetamine Urine VISTA NEGATIVE (<1000 ng/mL); Barbiturate Urine VISTA NEGATIVE (< 200 ng/mL); Benzodiazepine Urine VISTA NEGATIVE (< 200 ng/mL); Cocaine Urine VISTA NEGATIVE (< 300 ng/mL); Ecstacy Urine VISTA POSITIVE (< 500 ng/mL); Methadone Urine VISTA NEGATIVE (< 300 ng/mL); PCP Urine VISTA NEGATIVE (< 25 ng/mL); THC Urine VISTA POSITIVE (< 50 ng/mL); Vista UDS pH Range 4
[2023-04-16 13:32] LABS: Absolute Lymphocyte Count 1.66 X10^3/uL (0.83-4.51); Absolute Neutrophil Count 6.7 X10^3/uL (2.0-7.7); Basophil# 0.04 X10^3/uL; Basophil% 0.4 % (0-1); Eosinophil# 0.08 X10^3/uL; Eosinophils% 0.9 % (0-5); Hematocrit 42.6 % (37-47); Hemoglobin 14.4 g/dL (12.0-15.0); Lymphocyte # 1.66 X10^3/ul (0.83-4.51); Mean Corp Hgb Conc 33.8 g/dL (32-36); Mean Corpuscular Hgb 29.1 pg (27.0-32.0); Mean Corpuscular Volume 86.1 fL (81-99); Mean Platelet Vol. 8.8 fl (6.2-12.0); Monocyte# 0.75 X10^3/uL; Monocyte% 8.1 % (0-10); NRBC Flagged by Analyzer 0 % (0-5); Neutrophil # 6.65 X10^3/uL (2.7-7.7); Neutrophil % 72.2 % (47-70); Platelet Count 337 K/mm3 (150-450); RBC Distribution Width CV 11.8 % (11.6-14.6); RBC Distribution Width SD 36.9 fl (35.1-43.9); Red Blood Count 4.95 M/mm3 (4.2-5.4); White Blood Count 9.2 K/mm3 (4.4-11.0)
[2023-04-16 13:37] LABS: Internal QC Validated? YES +Cl - CLEAR BKGD; Record Kit Lot#, Serum Preg. HCG0000718086
[2023-04-16 13:45] LABS: Anion Gap 7 (5-15); BUN 10 mg/dL (7-18); BUN/Creat Ratio 13.3 RATIO (10-20); Calcium,Total 9.8 mg/dL (8.5-10.1); Chloride 109 mmol/L (98-107); Creatinine, Serum 0.75 mg/dL (0.55-1.02); EST Glomerular Filtration Rate 102 mL/min (>60); Est Glom Filt Rate - Afr Amer 124 mL/min (>60); Estimated Creatinine Clearance 123.06 ml/min; Glucose 97 mg/dL (74-106); Potassium 3.7 mmol/L (3.5-5.1); Sodium Level 140 mmol/L (136-145)
[2023-04-16 13:53] LABS: Pregnancy, Serum, hCG Quali. NEGATIVE Negative
--- OUTSIDE RECORDS SUMMARY | 2023-04-16 14:35 | XMS RPT_ITS | CCD ---
Author Name Unknown Address [address] [place], [place] [id number] Organization [facility] Care Team Providers Care Assistant Professor Of Criminal Justice Name Role Phone PHYSICIAN, NOT RECORDED Primary Care Physician Artur ROCKWELL MD, DR JORDAN Nowak Attending Unavailable PHYSICIAN, NOT RECORDED Primary Care Unavaila ble CLAUDIA LEPE DO Attending Unavailable PHYSICIAN, NOT RECORDED Primary Care Unavaila ble Allergies Allergy Classification Reported Allergen(s) Allergy Type Date of Onset Reaction(s) Facility (1 source) Contrast media; Translations: [iodinated radiocontrast agents] Drug allergy Throat swelling/itchin g [facility] Medications Current Medications Medication Drug Class(es) Dates [...] 15:04-0400 Diastolic Blood Pressure Non-Invasive 80 1 Palringo DO [facility] 10-25-2022 15:04-0400 Heart rate 82 /min [employer] [facility] 10-25-2022 15:04-0400 Respiratory rate 18 /min [employer] [facility] 10-25-2022 15:04-0400 Systolic Blood Pressure Non-Invasive 117 1 Palringo DO [facility] 10-25-2022 09:20-0400 Body temperature 98.6 [degF] Palringo DO [facility] 10-25-2022 09:20-0400 Diastolic Blood Pressure Non-Invasive 99 1 CLAUDIA REICH[employer] DO [facility] 10-25-2022 09:20-0400 Heart rate 116 /min CLAUDIA LEPE DO [facility] 10-25-2022 09:20-0400 Respiratory rate 20 /min CLAUDIA LEPE DO [facility] 10-25-2022 09:20-0400 Systolic Blood Pressure Non-Invasive 150 1 CLAUDIA LEPE DO [facility] Encounters Encounter Date Encounter Type Care Provider Facility Start: 10-25-2022 End: 10-25-2022 Emergency department patient visit CLAUDIA LEPE DO Facility:B Start: 10-25-2022 End: 10-25-2022 Emergency department patient visit CLAUDIA LEPE DO [facility] Start: 10-25-2022 End: 10-25-2022 Emergency department patient visit DR JORDAN ROCKWELL MD Facility:B Payers Date Payer Category Payer [employer] ( and others) [id number] 2001 Unknown [id number] 2001 Unknown [id number] Social History Date Type Detail Facility Tobacco Nicotine Use: Va ping Product in Last 90 Days. Type: Electronic Cigarettes (Vaping). [facility] Tobacco smoking status No Smoking Status Entered [facility] Sex Assigned At Female [facility] Functional Status Date Assessment Result Facility 10-25-2022 Functional Status [facility] Status Ambulation in [facility] Mental Status Date Assessment Result Facility 10-25-2022 Mental Status Orientation Oriented x 4 [facility] Discharge instructions 10-25-2022 Note Date & [...] center, counselor, psychologist, or psychiatrist can help. 6136-0151 [employer]. [address] [place] [address], [place] [address]. All rights reserved. This information is not [...] the police department, office involved, prosecutor or powerhouse laborer. If other symptoms, questions, or concerns develop discuss them with your healthcare provider or return to the nearest Emergency Department as needed. *Exam documents will be viewable on the patient portal. Photos will not be viewable on portal.* Document Released: 01/25/2006 Document Revised: 01/11/2013 Document Reviewed: 01/26/2014 ExitCare Patient Information 2014 [employer]. This information is not intended to replace advice given to you by your health care provider. Make sure you discuss any questions you have with your health care provider. 10/25/2022 13:30:22 ED [facility] Discharge Instructions (01/2018) (CUSTOM) [facility] DISCHARGE INSTRUCTIONS Because you have reported [...] infectious Disease specialist Dr. Bryon Huerta. Or [facility] as discussed. Please call on the next business day to schedule the necessary appointments. Follow Up Care for HIV prevention medications. Please call and schedule appointment with Dr. Joanna Huerta (Infectious Disease Specialist) Dr. Huerta [address] [place] [address] phone: [phone] Recommended Appointment Schedule: Date Time Initial visit [...] Document Reviewed: 01/26/2014 ExitCare Patient Information 2015 [employer]. This information is not intended to replace [...] National Crime Victim Information and Referral Hotline. www.tryPadloca.org 631-463-5398 National Domestic Violence Hotline. Offers 31/08 support and local custodial referrals in over 170 languages. www.theAlephD.org 914-751-4409 (TTY 230-106-7949) When to seek medical advice Call your [...] or memory loss Blurred or double vision 2260-3647 [employer]. [address] [place] [address], [place] [address]. All rights reserved. This information is not intended as a substitute for professional medical care. Always follow your healthcare professional's instructions. [facility] 10/25/2022 09:09:23 With:Go to emergency room if symptoms worsen Address:Unknown When:2-4 days With:Follow up with primary care provider Address:Unknown When:2-4 days [facility] Clinical Note 10-25-2022 Note Date & Type [...] may report side effects to FDA at 2-708-OFX-1076. What other drugs will affect promethazine? Using promethazine with other drugs that make you drowsy can worsen this effect. Ask your doctor before using opioid medication, a sleeping pill, a muscle relaxer, or medicine for anxiety or seizures. Other drugs may affect promethazine, including prescription and frpc-muj-altjwvy medicines, vitamins, and herbal products. Tell your [...] to ensure that the information provided by [employer]. ('VM[employer]') is accurate, up-to-date, and complete, but no guarantee is made to that effect. Drug information contained herein may be time sensitive. [employer] information has been compiled for use by healthcare practitioners and consumers in the [place] and therefore VMware does not warrant that uses outside of the [place] are appropriate, unless specifically indicated otherwise. [employer] drug information does not endorse drugs, diagnose patients or recommend therapy. [employer] drug information is an informational resource designed [...] effective or appropriate for any given patient. [employer] does not assume any responsibility for any aspect of healthcare administered with the aid of information VM[employer] provides. The information contained herein is not intended to cover all possible uses, directions, precautions, warnings, drug interactions, allergic reactions, or adverse effects. If you have questions about the drugs you are taking, check with your doctor, nurse or pharmacist. Copyright 1723-0688 [employer]. Version: 8.01. Revision Date: 03/05/2021. dolutegravir (BLUNT [...] may report side effects to FDA at 0-121-WLV-5430. What other drugs will affect dolutegravir? Some [...] can affect dolutegravir. This includes prescription and aedb-nah-phbzpfr medicines, vitamins, and herbal products. Not all [...] to ensure that the information provided by [employer]. ('Mult[employer]') is accurate, up-to-date, and complete, but no guarantee is made to that effect. Drug information contained herein may be time sensitive. [employer]ware information has been compiled for use by healthcare practitioners and consumers in the [place] and therefore [employer]ware does not warrant that uses outside of the [place] are appropriate, unless specifically indicated otherwise. [employer]'s drug information does not endorse drugs, diagnose patients or recommend therapy. [employer] drug information is an informational resource designed [...] effective or appropriate for any given patient. [facility] does not assume any responsibility for any aspect of healthcare administered with the aid of information [employer] provides. The information contained herein is not intended to cover all possible uses, directions, precautions, warnings, drug interactions, allergic reactions, or adverse effects. If you have questions about the drugs you are taking, check with your doctor, nurse or pharmacist. Copyright 2744-2883 [employer]. Version: 6.01. Revision Date: 09/06/2019. doxycycline (oral/injection) (DOX sarina regalado) Acticlate, Adoxa, Alodox, Avidoxy, Doryx, Doryx MPC, Lymepak, Mondoxyne NL, Monodox, Morgidox, Morgidox [id number], Morgidox 3n601bj, Okebo, Oracea, Targadox, Vibramycin, Vibramycin Monohydrate What [...] or life-threatening conditions such as anthrax or [place] spotted fever. The benefit of treating a [...] may report side effects to FDA at 2-415-ORL-4169. What other drugs will affect doxycycline? Sometimes it is not safe to use certain medications at the same time. Some drugs can affect your blood levels of other drugs you take, which may increase side effects or make the medications less effective. Other drugs may affect doxycycline, including prescription and kqbx-ovv-brueihn medicines, vitamins, and herbal products. Tell your [...] to ensure that the information provided by [employer]. ('[employer]') is accurate, up-to-date, and complete, but no guarantee is made to that effect. Drug information contained herein may be time sensitive. [employer] information has been compiled for use by healthcare practitioners and consumers in the [place] and therefore [employer] does not warrant that uses outside of the [place] are appropriate, unless specifically indicated otherwise. [employer] drug information does not endorse drugs, diagnose patients or recommend therapy. [employer] drug information is an informational resource designed [...] effective or appropriate for any given patient. [employer] does not assume any responsibility for any aspect of healthcare administered with the aid of information [employer] provides. The information contained herein is not intended to cover all possible uses, directions, precautions, warnings, drug interactions, allergic reactions, or adverse effects. If you have questions about the drugs you are taking, check with your doctor, nurse or pharmacist. Copyright 9285-1410 [employer]. Version: 25.. Revision Date: 10/14/2022. emtricitabine and tenofovir (ANDREW ramirez and ten OF hi vir ) Desckristiny, Descmeghan Blister Pack, Truvada [...] may report side effects to FDA at 8-460-LKJ-3302. What other drugs will affect emtricitabine and [...] affect emtricitabine and tenofovir, including prescription and gzkp-jdt-xkoobnm medicines, vitamins, and herbal products. Tell your [...] to ensure that the information provided by [employer]. ('[employer]') is accurate, up-to-date, and complete, but no guarantee is made to that effect. Drug information contained herein may be time sensitive. [employer]ware information has been compiled for use by healthcare practitioners and consumers in the [place] and therefore [employer] does not warrant that uses outside of the [place] are appropriate, unless specifically indicated otherwise. [employer] drug information does not endorse drugs, diagnose patients or recommend therapy. [employer] drug information is an informational resource designed [...] effective or appropriate for any given patient. [employer] does not assume any responsibility for any aspect of healthcare administered with the aid of information [employer] provides. The information contained herein is not intended to cover all possible uses, directions, precautions, warnings, drug interactions, allergic reactions, or adverse effects. If you have questions about the drugs you are taking, check with your doctor, nurse or pharmacist. Copyright 4030-6332 [employer]. Version: 14.. Revision Date: 09/11/2022. Education Materials [...] center, counselor, psychologist, or psychiatrist can help. 1426-1497 [employer]. [address] [place] [address]. All rights reserved. This information is not [...] are , repo (more content not included)... [facility] Evaluation + Plan note Note Date & Type Note Facility Evaluation + Plan note No data available for this section [facility] Note Note Date & Type Note Facility Note Cary Ribeiro RN: PERFORM Event Display: [facility] Patient Summary Authored Date: [id number] Discharge Instructions Thank you for allowing [facility] to assist you with your healthcare needs. [...] may report side effects to FDA at 9-128-KFD-4157. What other drugs will affect promethazine? Using promethazine with other drugs that make you drowsy can worsen this effect. Ask your doctor before using opioid medication, a sleeping pill, a muscle relaxer, or medicine for anxiety or seizures. Other drugs may affect promethazine, including prescription and ahtm-cjb-vsxyryz medicines, vitamins, and herbal products. Tell your [...] to ensure that the information provided by [employer]. ('[employer]') is accurate, up-to-date, and complete, but no guarantee is made to that effect. Drug information contained herein may be time sensitive. Get[employer]um information has been compiled for use by healthcare practitioners and consumers in the [place] and therefore [employer] does not warrant that uses outside of the [place] are appropriate, unless specifically indicated otherwise. [employer]'s drug information does not endorse drugs, diagnose patients or recommend therapy. [employer]'s drug information is an informational resource designed [...] effective or appropriate for any given patient. [facility] does not assume any responsibility for any aspect of healthcare administered with the aid of information [facility] provides. The information contained herein is not intended to cover all possible uses, directions, precautions, warnings, drug interactions, allergic reactions, or adverse effects. If you have questions about the drugs you are taking, check with your doctor, nurse or pharmacist. Copyright 2545-4927 [facility]. Version: 8.01. Revision Date: 03/05/2021. dolutegravir (BLUNT [...] may report side effects to FDA at 7-399-EJR-7015. What other drugs will affect dolutegravir? Some [...] can affect dolutegravir. This includes prescription and uesv-kit-cqqjukj medicines, vitamins, and herbal products. Not all [...] to ensure that the information provided by [employer]. ('[employer]') is accurate, up-to-date, and complete, but no guarantee is made to that effect. Drug information contained herein may be time sensitive. [employer]ware information has been compiled for use by healthcare practitioners and consumers in the [place] and therefore [employer]ware does not warrant that uses outside of the [place] are appropriate, unless specifically indicated otherwise. [employer] drug information does not endorse drugs, diagnose patients or recommend therapy. [employer] drug information is an informational resource designed [...] effective or appropriate for any given patient. [employer] does not assume any responsibility for any aspect of healthcare administered with the aid of information VMware provides. The information contained herein is not intended to cover all possible uses, directions, precautions, warnings, drug interactions, allergic reactions, or adverse effects. If you have questions about the drugs you are taking, check with your doctor, nurse or pharmacist. Copyright 6550-7456 [employer]. Version: 6.01. Revision Date: 09/06/2019. doxycycline (oral/injection) (DOX i LINA regalado) Acticlate, Adoxa, Alodox, Avidoxy, Doryx, Doryx MPC, Lymepak, Mondoxyne NL, Monodox, Morgidox, Morgidox 4a733dc, Morgidox 9u294rl, Okebo, Oracea, Targadox, Vibramycin, Vibramycin Monohydrate What [...] or life-threatening conditions such as anthrax or [place] spotted fever. The benefit of treating a [...] may report side effects to FDA at 2-999-CDD-0310. What other drugs will affect doxycycline? Sometimes it is not safe to use certain medications at the same time. Some drugs can affect your blood levels of other drugs you take, which may increase side effects or make the medications less effective. Other drugs may affect doxycycline, including prescription and bdtj-eyd-rswmwhx medicines, vitamins, and herbal products. Tell your [...] to ensure that the information provided by [employer]. ('[employer]') is accurate, up-to-date, and complete, but no guarantee is made to that effect. Drug information contained herein may be time sensitive. [employer]ware information has been compiled for use by healthcare practitioners and consumers in the [place] and therefore [employer]ware does not warrant that uses outside of the [place] are appropriate, unless specifically indicated otherwise. [employer] drug information does not endorse drugs, diagnose patients or recommend therapy. [employer] drug information is an informational resource designed [...] effective or appropriate for any given patient. [employer] does not assume any responsibility for any aspect of healthcare administered with the aid of information VM[employer] provides. The information contained herein is not intended to cover all possible uses, directions, precautions, warnings, drug interactions, allergic reactions, or adverse effects. If you have questions about the drugs you are taking, check with your doctor, nurse or pharmacist. Copyright 1576-7103 [employer]. Version: 25.. Revision Date: 10/14/2022. emtricitabine and [...] may report side effects to FDA at 9-469-BDO-5926. What other drugs will affect emtricitabine and [...] affect emtricitabine and tenofovir, including prescription and rcel-uch-dqymkfy medicines, vitamins, and herbal products. Tell your [...] to ensure that the information provided by [employer]. ('[employer]') is accurate, up-to-date, and complete, but no guarantee is made to that effect. Drug information contained herein may be time sensitive. [employer]ware information has been compiled for use by healthcare practitioners and consumers in the [place] and therefore [employer]ware does not warrant that uses outside of the [place] are appropriate, unless specifically indicated otherwise. [employer]'s drug information does not endorse drugs, diagnose patients or recommend therapy. [employer] drug information is an informational resource designed [...] effective or appropriate for any given patient. [employer] does not assume any responsibility for any aspect of healthcare administered with the aid of information VM[employer] provides. The information contained herein is not intended to cover all possible uses, directions, precautions, warnings, drug interactions, allergic reactions, or adverse effects. If you have questions about the drugs you are taking, check with your doctor, nurse or pharmacist. Copyright 0306-4063 [employer]. Version: 14.. Revision Date: 09/11/2022. Education Materials [...] center, counselor, psychologist, or psychiatrist can help. 9496-3766 [employer]. [address] [place] [address], [place] [address]. All rights reserved. This information is not [...] the police department, office involved, prosecutor or powerhouse laborer. If other symptoms, questions, or concerns develop discuss them with your healthcare provider or return to the nearest Emergency Department as needed. *Exam documents will be viewable on the patient portal. Photos will not be viewable on portal.* Document Released: 01/25/2006 Document Revised: 01/11/2013 Document Reviewed: 01/26/2014 ExitCare Patient Information 2015 [employer]. This information is not intended to replace advice given to you by your health care provider. Make sure you discuss any questions you have with your health care provider. [facility] STRANGULATION DISCHARGE INSTRUCTIONS Because you have reported [...] infectious Disease specialist Dr. Bryon Huerta. Or [facility] as discussed. Please call on the next business day to schedule the necessary appointments. Follow Up Care for HIV prevention medications. Please call and schedule appointment with Dr. Joanna Huerta (Infectious Disease Specialist) Dr. Huerta [address] [place] [address] phone: [phone] Recommended Appointment Schedule: Date Time Initial visit [...] Document Reviewed: 01/26/2014 ExitCare Patient Information [address] [facility]. This information is not intended to [...] National Crime Victim Information and Referral Hotline. www.[employer].Celtaxsys 182-631-1564 National Domestic Violence Hotline. Offers 31/08 support and local custodial referrals in over 170 languages. www.Zindigo.Celtaxsys 895-924-5201 (TTY 604-091-1509) When to seek medical advice Call your [...] or memory loss Blurred or double vision 9473-3240 [employer]. [address] [place] [address]. All rights reserved. This information is not intended as a substitute for professional medical care. Always follow your healthcare professional's instructions. Additional Information VACCINATE! IT SAVES LIVES! Members of the community who have not yet received the COVID-19 vaccine and would like to receive it can visit one of [facility] vaccine clinics. There are many vaccine clinic locations within the [facility]. For locations and available times, please visit www.gettheshot.coronavirus.[place].gov/. It is important to note that some COVID mobile vaccine clinics are held outdoors and may be canceled in rainy or stormy conditions. To learn more about pediatric vaccinations (ages 5-11), we invite you to visit the [facility] webpage. https://www.[facility].org/pages/2 934-Bfkrw-Cwditiwxqfq-Frequently-Asked -Questions.html To learn more about the COVID-19 vaccine, we invite you to visit the CDC website for a list of frequently asked questions. https://www.cdc.gov/coronavirus/2019-n cov/vaccines/faq.html [facility] Patient Portal Access Instructions: Stay connected with your healthcare team and access your personal medical information anytime with the [facility] Patient Portal. If you would like a full copy of your medical records please contact the [facility] Medical Records Department Wednesday through Wednesday between 8a.m. and 4:30p.m. Please follow the directions below to access the portal: 1.Access the email account you provided upon registration to the hospital.2.Look for an invitation email from [facility].3.Open the email and access the invitation link: Accept Invitation to [facility]4.Fill in the required mc to create your account. Sign into www.[employer] with your username and password that you [...] you will allow to register on the [facility] Patient Portal for access to your information. You can also access the [facility] Patient Portal on the [employer] cherri. Simply click on Health Records under Health Data and then click on the seedtag logo. HOW TO SAFELY DISPOSE OF PRESCRIPTION [...] Call your local pharmacy or go to http://revoPT.Cherry/0H2Je2f to find one close to you.3.Make use of household items: Use cat litter or old coffee grounds to dispose medications if other options are not available. Mix your drugs with these household products, seal them in an airtight container and throw it into the garbage. Call [facility]: [phone] to be sure your drugs can be [...] [facility] (CUSTOM) ED [facility] Discharge Instructions (01/2018) (CUSTOM) ED [facility] [...] aware that I should contact my doctor. Patient/Assembler Tester Signature: _ Date/Time: Relationship to Patient: Witness Name/Signature: Date/Time: [facility] Summary Purpose Family History No Family History [...] Physician Member Role: Attending Physician Address: Address: [address] [place] [id number] Care Team Related Persons Name: AMANDA CONNORS [...] BE BASED ON THE PRIMARY CLINICAL RECORDS. [facility]. provides no warranty or guarantee of the accuracy or completeness of information in this document.
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
--- NOTE | 2023-04-16 19:31 | ED.RN ---
[facility] CALLED, REFERRING TO [facility]
--- NOTE | 2023-04-16 20:23 | ED.RN ---
PT ACCEPTED AT [facility] EMERGENCY DEPARTMENT DUAL UNIT [address] [place] [address] [phone] PHYSICIANS CALLED [facility] ETA 0800.
--- NOTE | 2023-04-16 20:54 | EKG12_ITS ---
Test Reason : Blood Pressure : / mmHG Vent. Rate : 082 BPM Atrial Rate : 082 BPM P-R Int : 148 ms QRS Dur : 072 ms QT Int : 372 ms P-R-T Axes : 044 042 000 degrees QTc Int : 434 ms Normal sinus rhythm Normal ECG Confirmed by Miguel Cheng ([id number]), editor trade journal ESTUARDO PEREZ ([id number]) on 04/20/2023 7:10:08 AM Referred By: SHOLA Confirmed By:Miguel Cheng
[2023-04-16] MEDS: busPIRone 15 MG TABLET 30 MG PO (21:06)
[2023-04-16] MEDS: QUEtiapine 25 MG Tablet PO (21:06)
[2023-04-16] MEDS: Benzonatate 100 MG Capsule 200 MG PO (21:39)
[2023-04-17] VITALS (7 sets, daily range): BP systolic 101–124; BP diastolic 55–81; PULSE 66–90; RESP 16–17; TEMP 36.7; O2SAT 96–98
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
== END 2023-04-17 08:44 ==
LOC: ED 13:54
PROVIDERS: Emergency Provider Student in an Organized Health Care Education/Training Program; Visit Provider Student in an Organized Health Care Education/Training Program
DX: F32.A Depression, unspecified (principal); R45.851 Suicidal ideations; F41.9 Anxiety disorder, unspecified; Z79.899 Other long term (current) drug therapy
CPT/HCPCS: 80048; 80307; 80320; 84703; 85025; 93005; 99285; A4216; G0480